=== PATIENT | female | born 1990 | race Caucasian/White ===

== ENCOUNTER 2016-12-18 07:02 | Emergency (ER) | payer OTHER ==
[2016-12-18 07:31] VITALS: RESP 16
--- NOTE | 2016-12-18 07:31 | EDPHY ---
H & P Smoking Status: Never smoked Time Seen by Provider: 12/18/16 07:26 HPI/ROS: CHIEF COMPLAINT: Suicidal ideation HISTORY OF PRESENT ILLNESS: The patient is a 26-year-old female with history of depression, who presents with increased suicidal thoughts. The patient takes Cymbalta for depression. She states she is "having obsessive suicidal thoughts. " She woke up feeling very angry today. She states she episode of depression has been ongoing since May. The patient experienced the of her Grandmother recently. She was taken off of Cymbalta and started on Wellbutrin which made her depression worse. She was unable to sleep for 3-4 days and took Valium but reports it caused vivid PTSD dreams. Last night she took 2.5mg Zyprexa and was able to sleep. She woke up this morning angry and wanting to kill herself. She denies visual or auditory hallucinations. The patient has a history of multiple suicidal attempts, including overdoses and self-inflicted lacerations. She states she attempts suicide when intoxicated. The patient did not take her Cymbalta this morning. She states she currently does not have a plan for suicide. She denies recent alcohol use. REVIEW OF SYSTEMS: A comprehensive 10 point review of systems is otherwise negative aside from elements mentioned in the history of present illness. (Trina Greco) Past Medical/Surgical History: Depression. (Trina Greco) Social History: Social alcohol use. Nonsmoker. (Trina Greco) Physical Exam: General Appearance: Alert, pleasant Eyes: Pupils equal and round, no conjunctival pallor or injection ENT, Mouth: Mucous membranes moist Neck: Normal inspection Respiratory: Lungs are clear to auscultation Cardiovascular: Regular rate and rhythm Gastrointestinal: Abdomen is soft and non-tender Neurological: A&O, nonfocal, normal gait Skin: Warm and dry, no rash Extremities: Nontender, no pedal edema Psychiatric: Flat affect (Trina Greco) Constitutional: Initial Vital Signs Temperature (C) 36.5 C 12/18/16 07:13 Heart Rate 70 12/18/16 07:13 Respiratory Rate 18 12/18/16 07:13 Blood Pressure 124/86 H 12/18/16 07:13 O2 Sat (%) 100 12/18/16 07:13 O2 Delivery Mode Room Air Allergies/Adverse Reactions: Penicillins Allergy (Severe, Verified 12/18/16 07:12) Anaphylaxis Sulfa (Sulfonamide Antibiotics) Allergy (Severe, Verified 12/18/16 07:12) Anaphylaxis Home Medications: Medication Instructions Recorded Cymbalta 12/18/16 Zyprexa 12/18/16 Medical Decision Making ED Course/Re-evaluation: I took over care of this patient at 3:00 p.m.. The patient is on an M1 hold for suicidal ideation and depression. She is to be admitted to [facility]. ( Dimas Araujo) The patient has a history of depression, on Cymbalta, presenting with suicidal ideation. The patient to Zyprexa last night to help her sleep. She woke up this morning feeling angry and suicidal. She did not take her Cymbalta this morning. I placed the patient on an M1 hold. Plan for psychiatric evaluation. 10:20 a.m.: The patient is becoming more agitated and is tried to elope. She received Ativan 1mg IM. 2:15 p.m.: EPS has found placement for the patient. She will be transferred to [facility]. (Trina Greco) Differential Diagnosis: includes though not limited to overdose, self-injury, acute psychosis, hallucinations (Trina Greco) - Data Points Laboratory Results: Laboratory Results 12/18/16 07:37 12/18/16 07:37 Medications Given: Discontinued Medications Lorazepam (Ativan Injection) 1 mg IM EDNOW ONE Stop: 12/18/16 10:22 Last Admin: 12/18/16 10:40 Dose: 1 mg Lorazepam (Ativan) 1 mg PO EDNOW ONE Stop: 12/18/16 15:23 Last Admin: 12/18/16 16:15 Dose: 1 mg Departure - Departure Disposition: Other Psych, Not [facility] Clinical Impression: Suicidal ideation Depression Qualifiers: Depression Type: major depressive disorder Major depression recurrence: recurrent Active/Remission status: currently active Major depression episode severity: severe Psychotic features: without psychotic features Qualified Code(s ): F33.2 - Major depressive disorder, recurrent severe without psychotic features Condition: Fair Referrals: ENID PAUL [Other] - As per Instructions Report Scribed for: Trina Greco Report Scribed by: Florence Lucas Date of Report: 12/18/16 Time of Report: 07:28 Physician Review and Approval Statement: 12/18/16 07:29 Portions of this note were transcribed by a medical records coder. I personally performed the history, physical exam, and medical decision-making; and confirmed the accuracy of the information in the transcribed note. (Trina Greco)
[2016-12-18 07:45] LABS: % IMMATURE GRANULYOCYTES 0.3 % (0.0-1.1); ABSOLUTE IMMATURE GRANULOCYTES 0.02 10^3/uL (0.00-0.10); ADD DIFF? NO; ADD MORPH? YES; ADD SCAN? YES; ATYPICAL LYMPHOCYTE FLAG 160 (0-99); FRAGMENT RBC FLAG 20 (0-99); HEMATOCRIT 36.4 % (38.0-47.0); HEMOGLOBIN 11.1 g/dL (12.6-16.3); LEFT SHIFT FLG 0 (0-99); LIPEMIA HEMOLYSIS FLAG 80 (0-99); MEAN CELL HEMOGLOBIN 24.7 pg (27.9-34.1); MEAN CELL HEMOGLOBIN CONCENTR. 30.5 g/dL (32.4-36.7); MEAN CELL VOLUME 80.9 fL (81.5-99.8); PLATELET CLUMPS FLAG 0 (0-99); PLATELET COUNT 343 10^3/uL (150-400); RED CELL DISTRIBUTION WIDTH 21.6 % (11.5-15.2)
[2016-12-18 07:58] LABS: ANION GAP 12 mEq/L (8-16); CALCIUM 9.4 mg/dL (8.5-10.4); CARBON DIOXIDE 22 mEq/l (22-31); CHLORIDE 108 mEq/L (97-110); CREATININE 0.7 mg/dL (0.6-1.0); ETHANOL SERUM < 10 mg/dL (0-10); GLOMERULAR FILTRATION RATE > 60; GLUCOSE 88 mg/dL (70-100); SODIUM 142 mEq/L (134-144)
[2016-12-18 08:13] LABS: ELLIPTOCYTES 1+; HYPOCHROMIA 1+; MICROCYTES 1+; PLATELET ESTIMATE ADEQUATE (ADEQ); POLYCHROMASIA 1+
[2016-12-18 08:14] LABS: SCAN NEGATIVE
[2016-12-18] MEDS ORDERED: LORazepam 2 MG/ML INJ IM ONE (10:21)
[2016-12-18 15:20] VITALS: BP 119/74; PULSE 88; TEMP 98.2; O2SAT 96
[2016-12-18] MEDS ORDERED: LORazepam 1 MG TAB PO ONE (15:22)
== END 2016-12-18 16:32 ==
DX: R45.851 Suicidal ideations (principal); F33.2 Major depressive disorder, recurrent severe without psychotic features
CPT/HCPCS: 80305; G0480; J2060